=== PATIENT | female | born 1995 | race Hispanic/Latino ===

== ENCOUNTER 2018-05-03 01:49 | Emergency (ER) | payer OTHER ==
[2018-05-03 02:48] LABS: Absolute Lymphocytes (CBC) 1.4 K/uL (0.7-4.9); Absolute Monocytes 0.9 K/uL (0.1-1.3); Absolute Neutrophil 12.3 K/uL (1.8-8.0); Basophils % 0.1 % (0-1.3); Eosinophils % 0.8 % (0-4.4); Lymphocytes % 9.3 % (15.3-44.8)
[2018-05-03 02:56] LABS: Urine Bacteria >50 /HPF (<20); Urine Culture Reflex Order REFLEXED; Urine RBC NONE SEEN /HPF (NONE SEEN)
[2018-05-03 03:08] LABS: ALT/SGPT 17 U/L (12-78); AST/SGOT 10 U/L (15-37); Albumin 3.4 g/dL (3.4-5.0); Alkaline Phosphatase 122 U/L (45-117); BUN Blood Urea Nitrogen 10 mg/dL (7-18); Bicarbonate 28 mmol/L (21-32); Bilirubin Direct 0.2 mg/dL (0-0.2); Bilirubin Total 0.5 mg/dL (0.2-1.0); Glucose Level 119 mg/dL (74-106); Lipase 131 U/L (73-393); Potassium 3.9 mmol/L (3.5-5.1); Protein, Total 7.1 g/dL (6.4-8.2); Sodium Level 139 mmol/L (136-145)
[2018-05-03 03:19] LABS: Urine Blood TRACE (NEG); Urine Glucose NEGATIVE (NEG); Urine Protein TRACE (NEG)
[2018-05-03] MEDS ORDERED: CIPROFLOXACIN 400mg IV 400 MG/200 ML BAG IV ONE (04:55)
--- NOTE | 2018-05-03 05:33 | ER ---
Nurse's Notes [facility] Name: Georgiana Wiseman Age: 22 yrs Sex: Female : 1995 Arrival Date: 05/03/2018 Time: 01:50 Bed 13 Private MD: Diagnosis: Urinary tract infection, site not specified Presentation: 05/03 01:58 Presenting complaint: Patient states: starting yesterday I have had right lower stomach jb4 pains. 01:58 Method Of Arrival: Ambulatory jb4 01:58 Transition of care: patient was not received from another setting of care. Onset of jb4 symptoms was May 02, 2018. Risk Assessment: Do you want to hurt yourself or someone else? Patient reports no desire to harm self or others. Initial Sepsis Screen: Does the patient meet any 2 criteria? HR > 90 bpm. Yes Does the patient have a suspected source of infection? No. Patient's initial sepsis screen is negative. Care prior to arrival: None. 01:58 Acuity: LINSEY 3 jb4 Triage Assessment: 01:58 General: Appears in no apparent distress. uncomfortable, Behavior is calm, cooperative, jb4 appropriate for age. Pain: Complains of pain in right lower quadrant Pain does not radiate. Pain currently is 8 out of 10 on a pain scale. Quality of pain is described as pressure, Pain began 1 day ago. EENT: No signs and/or symptoms were reported regarding the EENT system. Neuro: Level of Consciousness is awake, alert, obeys commands, Oriented to person, place, time, situation. Cardiovascular: Patient's skin is warm and dry. Respiratory: Airway is patent Respiratory effort is even, unlabored, Respiratory pattern is regular, symmetrical. GI: Abdomen is flat, non-distended, Reports lower abdominal pain, upper abdominal pain. : No signs and/or symptoms were reported regarding the genitourinary system. Derm: Skin is intact, Skin is pink, warm \\T\\ dry. Musculoskeletal: Circulation, motion, and sensation intact. 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 - Social history:: Smoking status: Patient/guardian denies using tobacco, Patient/guardian denies using alcohol. - Ebola Screening: : No symptoms or risks identified at this time. - Family history:: not pertinent. - Hospitalizations: : No recent hospitalization is reported. Screenin:53 Abuse screen: Denies threats or abuse. Nutritional screening: No deficits noted. jb4 Tuberculosis screening: No symptoms or risk factors identified. Fall Risk None identified. Assessment: 01:58 General: see triage assessment.. jb4 02:54 Reassessment: Patient appears in no apparent distress at this time. Patient and/or jb4 family updated on plan of care and expected duration. Pain level reassessed. Patient is alert, oriented x 3, equal unlabored respirations, skin warm/dry/pink. ultrasound at the bedside. 04:15 Reassessment: Patient appears in no apparent distress at this time. Patient and/or jb4 family updated on plan of care and expected duration. Pain level reassessed. Patient is alert, oriented x 3, equal unlabored respirations, skin warm/dry/pink. 05:30 Reassessment: Patient appears in no apparent distress at this time. Patient and/or jb4 family updated on plan of care and expected duration. Pain level reassessed. PT is resting with eyes closed, respirations are even and unlabored. 06:06 Reassessment: Patient appears in no apparent distress at this time. Patient and/or jb4 family updated on plan of care and expected duration. Pain level reassessed. Patient is alert, oriented x 3, equal unlabored respirations, skin warm/dry/pink. Vital Signs: 01:58 BP 111 / 73; Pulse 95; Resp 16; Temp 98.6(O); Pulse Ox 100% on R/A; Weight 63.5 kg (R); jb4 Height 5 ft. 0 in. (152.40 cm) (R); Pain 8/10; 03:00 BP 103 / 60; Pulse 84; Resp 16; Pulse Ox 100% on R/A; jb4 04:00 BP 102 / 69; Pulse 82; Resp 16; Pulse Ox 99% on R/A; jb4 05:30 BP 97 / 58; Pulse 75; Resp 16; Pulse Ox 98% on R/A; jb4 05:45 BP 105 / 62; Pulse 72; Resp 16; Pulse Ox 99% on R/A; jb4 01:58 Body Mass Index 27.34 (63.50 kg, 152.40 cm) jb4 ED Course: 01:50 Patient arrived in ED. ds1 01:58 Arm band placed on left wrist. jb4 02:01 Akhil Lima MD is Attending Physician. rn 02:11 Jose D Boss, ZULEMA is Primary Nurse. jb4 02:13 Triage completed. jb4 02:35 Inserted saline lock: 20 gauge in left antecubital area, using aseptic technique. Blood cc3 collected. 02:53 Patient has correct armband on for positive identification. Bed in low position. Call jb4 light in reach. Side rails up X 1. Pulse ox on. NIBP on. 03:33 Ultrasound completed. Patient tolerated well. Notified ED Physician cammy. sg3 03:44 Radiology exam delayed due to Patient was unwilling to finish oral contrast. "Didn't kw1 like the taste." Spoke with Dr. Lima and he asked me to see if I could encourage her to drink any additional contrast and then scan her at 0400. 03:[address] via wheelchair. kw1 04:15 CT completed. Patient moved back from CT. kw1 05:45 No provider procedures requiring assistance completed. IV discontinued, intact, jb4 bleeding controlled. 10:30 CT Abd/Pelvis - W/Contrast In Process Unspecified. EDMS Administered Medications: 04:53 Drug: Cipro 400 mg Volume: 200 ml; Route: IVPB; Infused Over: 60 mins; Site: left [facility] antecubital; 05:53 Follow up: Response: No adverse reaction; IV Status: Completed infusion jb4 Outcome: 05:33 Discharge ordered by . rn 06:10 Discharged to home with friend. jb4 06:10 Condition: stable 06:10 Discharge instructions given to patient, Instructed on discharge instructions, follow up and referral plans. medication usage, Demonstrated understanding of instructions, follow-up care, medications, Prescriptions given X 1. 06:11 Patient left the ED. jb4 Signatures: Dispatcher [employer] EDAK SimpsonReanna ds1 Akhil Lima MD MD rn Bryson, James, RN RN jb4 Deirdre Kirkpatrick kw1 Ceci Burris sg3 Mari Barr cc3 Corrections: (The following items were deleted from the chart) 02:54 01:50 General: see triage assessment.. jb4 jb4 02:54 01:50 Reassessment: Patient appears in no apparent distress at this time. Patient jb4 and/or family updated on plan of care and expected duration. Pain level reassessed. Patient is alert, oriented x 3, equal unlabored respirations, skin warm/dry/pink. jb4 03:11 02:54 Reassessment: Patient appears in no apparent distress at this time. Patient jb4 and/or family updated on plan of care and expected duration. Pain level reassessed. Patient is alert, oriented x 3, equal unlabored respirations, skin warm/dry/pink. jb4 05:39 05:30 Reassessment: Patient appears in no apparent distress at this time. Patient jb4 and/or family updated on plan of care and expected duration. Pain level reassessed. Patient is alert, oriented x 3, equal unlabored respirations, skin warm/dry/pink. jb4
--- NOTE | 2018-05-03 05:33 | EDPHYS ---
Physician Documentation [facility] Name: Georgiana Wiseman Age: 22 yrs Sex: Female : 1995 Arrival Date: 05/03/2018 Time: 01:50 Bed 13 Private MD: ED Physician Akhil Lima HPI: 05/03 02:13 This 22 yrs old Female presents to ER via Ambulatory with complaints of rn Abdominal Pain. 02:13 The patient presents with abdominal pain. Onset: The symptoms/episode began/occurred rn yesterday. The symptoms do not radiate. Associated signs and symptoms: Pertinent positives: nausea, vomiting, Pertinent negatives: blood in stools, fever, hematuria, vaginal discharge. The symptoms are described as sharp, stabbing. Modifying factors: The symptoms are alleviated by nothing, the symptoms are aggravated by touching the area. Severity of pain: At its worst the pain was moderate in the emergency department the pain is unchanged. The patient has not experienced similar symptoms in the past. Reports lower abd pain since yesterday, both lower quadrants, no fever/vomiting/diarrhea. No trauma. Denies urinary symptoms/vaginal discharge. . 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 - Social history:: Smoking status: Patient/guardian denies using tobacco, Patient/guardian denies using alcohol. - Ebola Screening: : No symptoms or risks identified at this time. - Family history:: not pertinent. - Hospitalizations: : No recent hospitalization is reported. ROS: 02:13 Constitutional: Negative for fever, chills, and weight loss, Eyes: Negative for injury, rn pain, redness, and discharge, Neck: Negative for injury, pain, and swelling, Cardiovascular: Negative for chest pain, palpitations, and edema, Respiratory: Negative for shortness of breath, cough, wheezing, and pleuritic chest pain, Abdomen/GI: + abd pain MS/Extremity: Negative for injury and deformity, Skin: Negative for injury, rash, and discoloration, Neuro: Negative for headache, weakness, numbness, tingling, and seizure. Exam: 02:13 Constitutional: This is a well developed, well nourished patient who is awake, alert rn Head/Face: Normocephalic, atraumatic. Eyes: Pupils equal round and reactive to light, extra-ocular motions intact. Lids and lashes normal. Conjunctiva and sclera are non-icteric and not injected. Cornea within normal limits. Periorbital areas with no swelling, redness, or edema. ENT: MMM Abdomen/GI: soft, + tender in all 4 quadrants, worse in RLQ, no rebound, + guarding Back: No spinal tenderness. No costovertebral tenderness. Full range of motion. Skin: Warm, dry with normal turgor. Normal color with no rashes, no lesions, and no evidence of cellulitis. MS/ Extremity: Pulses equal, no cyanosis. Neurovascular intact. Full, normal range of motion. Equal circumference. Neuro: Awake and alert, GCS 15, oriented to person, place, time, and situation. Cranial nerves II-XII grossly intact. Motor strength 5/5 in all extremities. Sensory grossly intact. Cerebellar exam normal. Normal gait. Vital Signs: 01:58 BP 111 / 73; Pulse 95; Resp 16; Temp 98.6(O); Pulse Ox 100% on R/A; Weight 63.5 kg (R); jb4 Height 5 ft. 0 in. (152.40 cm) (R); Pain 8/10; 03:00 BP 103 / 60; Pulse 84; Resp 16; Pulse Ox 100% on R/A; jb4 04:00 BP 102 / 69; Pulse 82; Resp 16; Pulse Ox 99% on R/A; jb4 05:30 BP 97 / 58; Pulse 75; Resp 16; Pulse Ox 98% on R/A; jb4 05:45 BP 105 / 62; Pulse 72; Resp 16; Pulse Ox 99% on R/A; jb4 01:58 Body Mass Index 27.34 (63.50 kg, 152.40 cm) jb4 MDM: 02:01 Patient medically screened. rn 05:30 Differential diagnosis: appendicitis, non-specific abd pain, Ovarian Torsion, rn Ureterolithiasis, urinary tract infection. Data reviewed: vital signs, nurses notes, lab test result(s), radiologic studies, CT scan, and as a result, I will discharge patient. Counseling: I had a detailed discussion with the patient and/or guardian regarding: the historical points, exam findings, and any diagnostic results supporting the discharge/admit diagnosis, lab results, radiology results, the need for outpatient follow up, to return to the emergency department if symptoms worsen or persist or if there are any questions or concerns that arise at home. Response to treatment: the patient's symptoms have markedly improved after treatment, and as a result, I will discharge patient. Special discussion: Based on the patient's Hx, exam, and Dx evaluation, there is no indication for emergent surgery or inpatient Tx. It is understood by the patient/guardian that if the Sx's persist or worsen they need to return immediately for re-evaluation. I discussed with the patient/guardian in detail that at this point there is no indication for admission to the hospital. It is understood, however, that if the symptoms persist or worsen the patient needs to return immediately for re-evaluation. ED course: Pt with UTI, no acute findings on CT abdomen, stable vitals, improved, sleeping comfortably. . 05/03 02:09 Order name: Basic Metabolic Panel 05/03 02:09 Order name: CBC with Diff 05/03 02:09 Order name: Hepatic Function 05/03 02:09 Order name: Lipase 05/03 02:09 Order name: Urine Microscopic Only 05/03 02:55 Order name: CBC with Automated Diff; Complete Time: 03:19 EDKS 05/03 02:57 Order name: Urine Microscopic Only; Complete Time: 03:19 EDKS 05/03 03:02 Order name: Urine Dipstick--Ancillary (enter results) 05/03 03:02 Order name: Urine --Ancillary (enter results) 05/03 03:08 Order name: Basic Metabolic Panel; Complete Time: 03:19 EDKS 05/03 03:08 Order name: Liver (Hepatic) Function; Complete Time: 03:19 EDMS 05/03 03:08 Order name: Lipase; Complete Time: 03:19 EDMS 05/03 03:19 Order name: Urine --Ancillary; Complete Time: 04:30 EDKS 05/03 03:19 Order name: Urine Dipstick-Ancillary; Complete Time: 04:30 EDMS 05/03 02:09 Order name: IV Saline Lock; Complete Time: : rn 05/03 02:09 Order name: Labs collected and sent; Complete Time: : rn 05/03 02:09 Order name: US Pelvis Complete rn 05/03 02:09 Order name: CT Abd/Pelvis - W/Contrast rn 05/03 02:09 Order name: NPO; Complete Time: : rn 05/03 02:09 Order name: Urine Test (obtain specimen); Complete Time: : rn 05/03 02:09 Order name: Urine Dipstick-Ancillary (obtain specimen); Complete Time: : rn Administered Medications: 04:53 Drug: Cipro 400 mg Volume: 200 ml; Route: IVPB; Infused Over: 60 mins; Site: left jb4 antecubital; 05:53 Follow up: Response: No adverse reaction; IV Status: Completed infusion jb4 Disposition: 05/03/18 05:33 Discharged to Home. Impression: Urinary tract infection, site not specified. - Condition is Stable. - Discharge Instructions: Urinary Tract Infection, Adult. - Prescriptions for Cipro 500 mg Oral Tablet - take 1 tablet by ORAL route every 12 hours for 7 days; 14 tablet. - Medication Reconciliation Form, Thank You Letter, Antibiotic Education, Prescription Opioid Use, Family Work Release form. - Follow up: Private Physician; When: As needed; Reason: Recheck today's complaints, Re-evaluation by your physician. - Problem is new. - Symptoms have improved. Signatures: Dispatcher [employer] [facility] Akhil Lima MD MD rn Bryson, James, RN RN jb4 Corrections: (The following items were deleted from the chart) 06:11 05:33 05/03/2018 05:33 Discharged to Home. Impression: Urinary tract infection, site jb4 not specified. Condition is Stable. Forms are Medication Reconciliation Form, Thank You Letter, Antibiotic Education, Prescription Opioid Use. Follow up: Private Physician; When: As needed; Reason: Recheck today's complaints, Re-evaluation by your physician. Problem is new. Symptoms have improved. rn
--- NOTE | 2018-05-03 09:30 | RAD REPORT ---
EXAM DESCRIPTION: US - Pelvis Complete - 05/03/2018 3:36 am CLINICAL HISTORY: Pelvic pain COMPARISON: None FINDINGS: The uterus measures 10 x 4 x 5cm. The endometrial stripe measures 10 millimeters. A fibroi d is not seen. The ovaries are normal in size and echotexture. An adnexal mass is not noted No significant free fluid is seen. IMPRESSION: Unremarkable pelvic ultrasound
--- NOTE | 2018-05-04 11:22 | RAD REPORT ---
EXAM DESCRIPTION: CT - Abdomen Pelvis W Contrast - 05/03/2018 4:58 am CLINICAL HISTORY: 22-year-old female with lower abdominal pain, right lower quadrant pain TECHNIQUE: Axial CT imaging of the abdomen and pelvis was performed following the administration of intravenous contrast.. Sagittal and coronal reconstructed images were then performed. The CT stud y is performed according to ALARA (as low as reasonably achievable) or ALARA/IMAGE GENTLY, with autom atic adjustment of mA and/or kV according to patient size. Performed on: 05/03/2018 at 4:04 AM. COMPARISON: None FINDINGS: Lung bases: The lung bases are clear. Liver: The liver is normal in size and configuration. No focal hepatic abnormalities are identified. Liver attenuation is within normal limits. Spleen: The spleen is normal is size, configuration and attenuation. Gallbladder and bile duct: The gallbladder is well distended and unremarkable. There is no biliary ductal dilatation. Pancreas: The pancreas is grossly normal in size and configuration. Adrenal Glands: The adrenal glands are normal in size and configuration. Kidneys: The kidneys are normal in size and configuration. There is no evidence of hydronephrosis. Th ere is no evidence of nephrolithiasis. No definite solid or cystic renal mass lesions are identified. Stomach: The stomach is grossly normal. There is no definite hiatal hernia. Bowel: The bowel gas pattern is non specific and non obstructive. Appendix: The appendix is normal. Free air: There is no evidence of free air. Free fluid: There is no evidence of free fluid. Vasculature: The aorta is normal in caliber and contour. The inferior vena cava is grossly unremarkab le. Lymphadenopathy: No pathologic lymphadenopathy is identified. Bladder: The bladder is well distended and smooth in contour. Reproductive: The uterus is grossly within normal limits. Bones: No acute osseous abnormalities are identified. Soft tissues: No focal soft tissue abnormalities are identified. IMPRESSION: 1. No evidence of acute intra-abdominal or intrapelvic pathology. 2. No CT evidence to suggest acute appendicitis, gallbladder pathology or urinary tract obstruction. Electronically signed by: Savanna Perry DO 05/03/2018 4:34 AM DATA INTEGRATION ANALYST Due to temporary technical issues with the PACS/Fluency reporting system, reports are being signed by the in house radiologist as a courtesy to ensure prompt reporting. The interpreting radiologist is f ully responsible for the content of the report.
== END 2018-05-03 06:11 | disposition home or self-care (01) ==
LOC: ER 01:49
DX: N39.0 Urinary tract infection, site not specified (principal)
CPT/HCPCS: 36415; 74177; 76856; 80048; 80076; 81003; 81015; 81025; 83690; 85025; 87077; 87086; 87088; 87186; 96365; 99284; J0744; Q9967